=== PATIENT | male | born 1940 | race American Indian/Alaskan Native ===

== ENCOUNTER 2017-05-11 20:08 | Emergency (ER) | payer MEDICARE, OTHER ==
[~2017-05-11] VITALS: Ht 170.2 cm; Wt 80.7 kg
[~2017-05-11 20:08] MED LIST: ASPIRIN EC81 MG PO; AVAPRO150 MG PO; PREDNISONE20 MG PO; TRIAMTERENE-HC1 EAC1 PO; VALACYCLOVIR1000 MG PO
--- NOTE | 2017-05-13 07:08 | EKG ---
[facility] [address] [facility] [place] [address] Signed Normal sinus rhythm Normal ECG When compared with ECG of 15-MAR-2016 17:45, Nonspecific T wave abnormality now evident in Lateral leads Confirmed by DA LANG MD ([id number]) on 05/13/2017 7:08:43 AM Electronically Signed By: DA LANG MD 05/13/17 0708 PATIENT NAME: SPENCER GEORGE Electrocardiogram DATE OF : 44 PHYSICIAN: DA LANG MD REPORT #: [id number] REPORT IS CONFIDENTIAL AND NOT TO BE RELEASED WITHOUT AUTHORIZATION
== END 2017-05-11 23:22 | disposition home or self-care (01) ==
LOC: ED 20:08
DX: R55 Syncope and collapse (principal); E78.00 Pure hypercholesterolemia, unspecified; I10 Essential (primary) hypertension; Z87.891 Personal history of nicotine dependence; Z88.5 Allergy status to narcotic agent; Z79.52 Long term (current) use of systemic steroids; Z79.899 Other long term (current) drug therapy; Z79.82 Long term (current) use of aspirin
CPT/HCPCS: 36415; 80053; 81001; 84484; 85025; 93005; 93010; 99284; J7030

== ENCOUNTER 2019-03-08 11:45 | Day surgery (SDC) | payer MEDICARE, OTHER ==
[~2019-03-08] VITALS: Ht 170.2 cm; Wt 72.6 kg
--- NOTE | ~2019-03-08 | PATH ---
[facility] [address] [facility] [facility] [place] [address] Draft SPECIMEN(S): A COLON POLYP SPECIMEN(S): B COLON POLYP A T 80 CM SPECIMEN SOURCE: A. COLON POLYP B. COLON POLYP A T 80 CM CLINICAL HISTORY: History of polyps. Postop: Polyps, diverticulosis. MICROSCOPIC DESCRIPTION: Histologic sections of all submitted blocks are examined by light microscopy. These findings, together with the gross examination, support the pathologic diagnosis. FINAL PATHOLOGIC DIAGNOSIS: A. Colon, descending, polyp, polypectomy: - Tubular adenoma. - Negative for high-grade dysplasia or malignancy. B. Colon, descending, polyp at 80 cm, polypectomy: - Tubular adenoma. - Negative for high-grade dysplasia or malignancy. NAL:emb:C2NR GROSS DESCRIPTION: Two specimens are received in two containers, labeled "EP." A. The specimen, labeled "EP, descending colon polyp," is received in formalin and consists of two pink-wallace soft tissue fragment(s) that measure up to cm in greatest dimension. The specimen is entirely submitted in cassette (A1). B. The specimen, labeled "EP, descending colon polyp at 80 cm," is received in formalin and consists of one pink-wallace soft tissue fragment that measures 0.1 cm in greatest dimension. The specimen is entirely submitted in cassette (B1). JS (under the direct supervision of a pathologist) The Gross Description was prepared using a voice recognition system. The report was reviewed for accuracy; however, sound-alike word errors, addition and/or deletions may occur. If there is any question about this report, please contact Client Services. PERFORMING LABORATORY: The technical component was performed by EUDOWEB, Serafin Schneider, PATIENT NAME: SPENCER GEORGE PATHOLOGY DATE OF : 44 REPORT #: [id number] PHYSICIAN: EDISON PATHOLOGY PCP: KIRK FRENCH REPORT IS CONFIDENTIAL AND NOT TO BE RELEASED WITHOUT AUTHORIZATION [facility] [address] [place], [place] [address] [place] [address] (Lumber Grader: Мария Leach MD; CLIA# [id number]). [facility] [address] [address] (Lumber Grader: Tobias Coulter MD; CLIA# [id number]). Diagnostician: Marlen Sutherland MD Pathologist Electronically Signed 03/09/2019 Copies: ~ PATIENT NAME: SPENCER GEORGE PATHOLOGY DATE OF : 44 REPORT #: [id number] PHYSICIAN: EDISON VALENCIA PCP: KIRK FRENCH REPORT IS CONFIDENTIAL AND NOT TO BE RELEASED WITHOUT AUTHORIZATION
--- NOTE | 2019-03-08 12:57 | NUR ---
03/08/19 1257 Rosie Maldonado 2495-PATIENT ARRIVED TO PACU ON 2L NC RR EVEN. PATIENT REACTIVE TO VERBAL STMULI OPENING EYES DENIES PAIN OR NAUSEA. LAYING LEFT LATERAL ABDOMEN SOFT PASSING GAS
--- NOTE | 2019-03-12 18:26 | OR ---
[facility] [address] [place], [place] [address] Signed DATE OF OPERATION: 03/08/2019 SURGEON: Collins Shafer MD PREOPERATIVE DIAGNOSIS: History of multiple tubular adenomas, colonoscopy 2018. POSTOPERATIVE DIAGNOSES: 1. Polyps x2. 2. Scattered diverticula. PROCEDURES PERFORMED: Total colonoscopy to cecum with cold snare polypectomy x1 and cold morcellation polypectomy x1. ANESTHESIA: Intravenous sedation, fentanyl 100 mcg, Versed 6 mg. INDICATION: This 79-year-old man is a patient of YOKASTA Lofton. 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 He underwent colonoscopy by me in 2018, at which time he had multiple adenomatous polyps. I have recommended short interval colonoscopy on the basis of multiple polyps. The risks of bleeding, infection, and perforation related to colonoscopy were reviewed with him again. He understands and wished to proceed. FINDINGS: The prep was excellent. Complete colonoscopy was undertaken to the cecum without question. There was evidence of prior endoscopic tattooing of the right colon and hepatic flexure area. Two small polyps of the left colon at about 80 cm, both excised completely. There were few scattered diverticula of the sigmoid. There were no other findings of concern. DESCRIPTION OF PROCEDURE: The patient was brought to the endoscopy suite, placed in lateral decubitus position, and given intravenous sedation to the point of slurred speech and nystagmus. Digital rectal examination was normal. An Olympus video colonoscope was passed in the rectum and manipulated throughout the colon. A small sessile polyp was noted at about 80 to 90 cm, but it was not in a good Electronically Signed By: COLLINS SHAFER MD 03/12/19 1826 PATIENT NAME: SPENCER GEORGE OPERATIVE REPORT DATE OF : 44 REPORT #: [id number] PHYSICIAN: COLLINS SHAFER MD PCP: KIRK FRENCH REPORT IS CONFIDENTIAL AND NOT TO BE RELEASED WITHOUT AUTHORIZATION [facility] [address] [place], [place] [address] Signed position for excision and therefore the scope was passed beyond this ultimately to the cecum. Ileocecal valve and appendiceal orifice were identified as normal. Scope was withdrawn and at about the hepatic flexure, Endo Marcus tattoo dye was noted from the past. The scope was further withdrawn examining for the polyp that had been seen initially. It was not seen. The scope was carefully withdrawn and ultimately withdrawn to the rectum. Mindful that need for excision of the polyp was necessary, the scope was reintroduced and passed once again all the way to the hepatic flexure and then withdrawn and careful examination once again undertaken. The polyp was identified in the splenic flexure area. Another small polyp was noted nearby. One was excised with cold snare technique, the other with cold morcellation technique based on size. The scope was further withdrawn. The remaining colon was normal. The polyps were passed for pathology. The scope was then removed and the patient was taken to recovery room in good condition. CONCLUDING DIAGNOSES: Polyps x2 and minimal diverticular changes. PLAN: Recommend repeat colonoscopy in 5 years, sooner if clinically indicated. [facility] Collins Shafer MD JM/MODL /[id number] Copies: ~ Electronically Signed By: COLLINS SHAFER MD 03/12/19 1826 PATIENT NAME: SPENCER GEORGE OPERATIVE REPORT DATE OF : 44 REPORT #: [id number] PHYSICIAN: COLLINS SHAFER MD PCP: KIRK FRENCH REPORT IS CONFIDENTIAL AND NOT TO BE RELEASED WITHOUT AUTHORIZATION
== END 2019-03-08 13:40 | disposition home or self-care (01) ==
LOC: DS 11:45 → OPS 11:45 → DS 14:00 → OPS 14:00
PROVIDERS: Surgery
PROC: 0DBM8ZZ Excision of Descending Colon, Via Natural or Artificial Opening Endoscopic (ICD-10-PCS; principal; 2019-03-08 14:00)
DX: D12.4 Benign neoplasm of descending colon (principal); K57.30 Diverticulosis of large intestine without perforation or abscess without bleeding; I10 Essential (primary) hypertension; Z86.010 Personal history of colon polyps; Z88.5 Allergy status to narcotic agent; Z98.890 Other specified postprocedural states
CPT/HCPCS: 99153; G0500; J2250; J3010; J7121